=== PATIENT | male | born 1995 | race Caucasian/White ===

== ENCOUNTER 2018-08-31 11:50 | Emergency (ER) | payer OTHER ==
[~2018-08-31] VITALS: Ht 177.8 cm; Wt 72.6 kg
[2018-08-31 13:06] VITALS: BP 110/73
== END 2018-08-31 13:06 | disposition home or self-care (01) ==
LOC: ER 11:50
DX: S61.215A Laceration without foreign body of left ring finger without damage to nail, initial encounter (principal); Z90.89 Acquired absence of other organs; W27.0XXA Contact with workbench tool, initial encounter; Y92.89 Other specified places as the place of occurrence of the external cause; Y99.0 Civilian activity done for income or pay; Y99.8 Other external cause status